=== PATIENT | male | born 1965 | race Caucasian/White ===

== ENCOUNTER 2023-12-24 11:45 | Emergency (ER) | payer OTHER ==
[2023-12-24] MEDS ORDERED: Sodium Chloride 0.9% 10 ML Syringe FLUSH PRN (12:05)
[2023-12-24 12:17] LABS: BASOPHILS ABSOLUTE AUTO 0.06 K/uL (0.02-0.10); BASOPHILS PERCENT AUTO 0.7 % (0.0-0.5); EOSINOPHILS ABSOLUTE AUTO 0.19 K/uL (0.04-0.40); EOSINOPHILS PERCENT AUTO 2.3 % (1.0-5.0); HEMATOCRIT 45.9 % (40.0-54.0); HEMOGLOBIN 15.6 g/dL (13.0-18.0); LYMPHOCYTES ABSOLUTE AUTO 1.26 K/uL (1.50-4.00); LYMPHOCYTES PERCENT AUTO 15.5 % (20.0-40.0); MEAN CORPUSCULAR VOLUME 97 fL (76-96); MONOCYTES ABSOLUTE AUTO 0.77 K/uL (0.20-0.80); MONOCYTES PERCENT AUTO 9.5 % (3.0-10.0); NEUTROPHILS ABSOLUTE AUTO 5.85 K/uL (2.00-7.50); PLATELET COUNT,PLT 256 K/uL (150-400); RED BLOOD CELL COUNT 4.73 M/uL (4.50-6.50); RED CELL DISTRIBUTION WIDTH 12.7 % (11.0-16.0); WHITE BLOOD CELL COUNT,WBC 8.1 K/uL (4.0-11.0)
[2023-12-24] MEDS: Lactated Ringers 1,000 ML IV ONE (12:22)
[2023-12-24 12:45] LABS: CARBON DIOXIDE,CO2 22.4 mmol/L (21.0-32.0); CHLORIDE,CL 98 mmol/L (98-107); ESTIMATED GFR 111 mL/min (>60); POTASSIUM,K 4.4 mmol/L (3.5-5.1); SODIUM,NA 133 mmol/L (136-145)
[2023-12-24 12:46] LABS: BLOOD UREA NITROGEN,BUN 6 mg/dL (8-26); GLUCOSE RANDOM 123 mg/dL (74-100)
[2023-12-24 12:57] LABS: APPEARANCE,URINE CLEAR (CLEAR); BILIRUBIN,URINE NEGATIVE (NEGATIVE); COLOR,URINE YELLOW; GLUCOSE,URINE NEGATIVE (NEGATIVE); KETONES,URINE NEGATIVE (NEGATIVE); LEUKOCYTE ESTERASE,URINE NEGATIVE (NEGATIVE); NITRITE,URINE NEGATIVE (NEGATIVE); OCCULT BLOOD,URINE TRACE-LYSED (NEGATIVE); PROTEIN,URINE NEGATIVE (NEGATIVE)
[2023-12-24 13:00] LABS: RBC,URINE 0-5 /HPF; WBC,URINE 0-5 /HPF
[2023-12-24] MEDS: Ketorolac 30 MG/ML SDV IVPUSH ONE (13:50)
[2023-12-24] MEDS: Ketorolac 30 MG/ML SDV ONE (14:10)
[2023-12-24 17:53] LABS: A/G RATIO 0.8 (0.8-2.0); ALANINE AMINOTRANSFERASE,ALT 62 U/L (12-78); ALBUMIN 3.7 g/dL (3.4-5.0); ALKALINE PHOSPHATASE 85 U/L (46-116); ASPARTATE AMNIOTRANSFERASE,AST 40 U/L (15-37); BILIRUBIN TOTAL 0.8 mg/dL (0.0-1.0); PHOSPHORUS 3.7 mg/dL (2.5-4.9); PROTEIN TOTAL,TP 8.2 g/dL (6.4-8.2)
== END 2023-12-24 13:55 | disposition home or self-care (01) ==
LOC: LB.ED 11:45
DX: J01.90 Acute sinusitis, unspecified (principal); T38.3X5A Adverse effect of insulin and oral hypoglycemic [antidiabetic] drugs, initial encounter; I10 Essential (primary) hypertension; E11.9 Type 2 diabetes mellitus without complications; E66.9 Obesity, unspecified; Z87.891 Personal history of nicotine dependence; Z79.84 Long term (current) use of oral hypoglycemic drugs; Z88.8 Allergy status to other drugs, medicaments and biological substances; Z68.41 Body mass index [BMI] 40.0-44.9, adult
CPT/HCPCS: 36415; 80053; 81001; 83735; 84100; 85025; 96361; 96374; 99284; J1885; J7120; 99283

== ENCOUNTER 2023-12-27 09:55 | Observation (INO) | payer OTHER ==
[2023-12-27 11:02] LABS: BASOPHILS ABSOLUTE AUTO 0.05 K/uL (0.02-0.10); BASOPHILS PERCENT AUTO 0.5 % (0.0-0.5); EOSINOPHILS ABSOLUTE AUTO 0.15 K/uL (0.04-0.40); EOSINOPHILS PERCENT AUTO 1.6 % (1.0-5.0); HEMATOCRIT 45.1 % (40.0-54.0); HEMOGLOBIN 15.6 g/dL (13.0-18.0); LYMPHOCYTES ABSOLUTE AUTO 1.34 K/uL (1.50-4.00); LYMPHOCYTES PERCENT AUTO 14.4 % (20.0-40.0); MEAN CORPUSCULAR HEMOGLOBIN 32.8 pg (27.0-32.0); MEAN CORPUSCULAR HGB CONC 34.6 g/dL (31.0-35.0); MEAN CORPUSCULAR VOLUME 95 fL (76-96); MEAN PLATELET VOLUME 9.2 fL (6.0-10.0); MONOCYTES ABSOLUTE AUTO 0.89 K/uL (0.20-0.80); MONOCYTES PERCENT AUTO 9.5 % (3.0-10.0); PLATELET COUNT,PLT 244 K/uL (150-400); RED BLOOD CELL COUNT 4.75 M/uL (4.50-6.50); RED CELL DISTRIBUTION WIDTH 12.6 % (11.0-16.0); WHITE BLOOD CELL COUNT,WBC 9.3 K/uL (4.0-11.0)
[2023-12-27 11:09] LABS: APPEARANCE,URINE CLEAR (CLEAR); BILIRUBIN,URINE SMALL (NEGATIVE); COLOR,URINE YELLOW; GLUCOSE,URINE NEGATIVE (NEGATIVE); KETONES,URINE NEGATIVE (NEGATIVE); LEUKOCYTE ESTERASE,URINE NEGATIVE (NEGATIVE); NITRITE,URINE NEGATIVE (NEGATIVE); OCCULT BLOOD,URINE MODERATE (NEGATIVE); PH,URINE 5.5 (5.0-8.0); PROTEIN,URINE NEGATIVE (NEGATIVE); UROBILINOGEN,URINE 0.2 E.U./dL (0.2-1.0)
[2023-12-27 11:13] LABS: HEMOGLOBIN A1C 5.8 % (< 5.7)
[2023-12-27 11:13] LABS: AMORPHOUS SEDIMENT,URINE FEW /HPF; MUCUS,URINE MODERATE /HPF; RBC,URINE 0-5 /HPF; SQUAMOUS EPITHELIAL CELLS,UR OCCASIONAL /HPF; WBC,URINE 0-5 /HPF
[2023-12-27 11:27] LABS: A/G RATIO 0.9 (0.8-2.0); ALBUMIN 3.8 g/dL (3.4-5.0); ANION GAP 17.2 mmol/L (5.0-15.0); BILIRUBIN TOTAL 0.6 mg/dL (0.0-1.0); BUN/CREATININE RATIO 9.6 (6-25); CARBON DIOXIDE,CO2 22.7 mmol/L (21.0-32.0); CREATININE 0.83 mg/dL (0.70-1.30); EST CRCL DRUG DOSING (CG) 92.71 mL/min; POTASSIUM,K 3.9 mmol/L (3.5-5.1)
[2023-12-27] MEDS: methylPREDNISolone Sodium Succinate 125 MG/2 ML SDV IM ONE (12:03)
[2023-12-27] MEDS ORDERED: Nystatin Topical Powder 15 GM Bottle TOP PRN (13:19)
[2023-12-27] MEDS ORDERED: MULTIVITAMIN PO SCH (14:00)
[2023-12-27] MEDS: Nystatin Topical Powder 15 GM Bottle ONE (14:37)
[2023-12-27] MEDS: Lactobacillus Acidophilus/Lactobacillus Sporogenes (Probiotic) Tab PO SCH (14:53)
[2023-12-27] MEDS: Losartan 50 MG Tab PO ONE (17:36)
[2023-12-27] MEDS: Acetaminophen 325 MG Tab PO PRN (21:05)
[2023-12-28] MEDS: Losartan 50 MG Tab PO SCH (09:55)
[2023-12-28] MEDS: Multivitamin Tab PO SCH (09:55)
[2023-12-28] MEDS: buPROPion 300 MG Tab.ER PO SCH (09:55)
[2023-12-28] MEDS: Sertraline 100 MG Tab PO SCH (09:56)
[2023-12-28] MEDS: Enoxaparin 40 MG/0.4 ML Syringe SUBCUT SCH (09:56)
[2023-12-28] MEDS: Diazepam 5 MG Tab PO ONE (17:02)
[2023-12-28] MEDS: Cyclobenzaprine 10 MG Tab PO ONE (17:07)
[2023-12-28] MEDS: Cyclobenzaprine 10 MG Tab ONE (17:58)
[2023-12-28] MEDS: Diazepam 5 MG Tab ONE (18:15)
[2023-12-28] MEDS: Morphine 4 MG/ML VIAL IVPUSH PRN (19:45)
[2023-12-28] MEDS: Bisacodyl 5 MG Tab PO SCH (19:45)
[2023-12-28] MEDS: Acetaminophen/HYDROcodone 325-5 MG Tab PO PRN (21:38)
[2023-12-29 08:07] LABS: HEMATOCRIT 46.2 % (40.0-54.0); HEMOGLOBIN 15.8 g/dL (13.0-18.0); MEAN CORPUSCULAR HEMOGLOBIN 33.3 pg (27.0-32.0); MEAN CORPUSCULAR HGB CONC 34.2 g/dL (31.0-35.0); MEAN PLATELET VOLUME 9.2 fL (6.0-10.0); RED BLOOD CELL COUNT 4.74 M/uL (4.50-6.50); RED CELL DISTRIBUTION WIDTH 12.8 % (11.0-16.0); WHITE BLOOD CELL COUNT,WBC 8.6 K/uL (4.0-11.0)
[2023-12-29 08:27] LABS: A/G RATIO 0.8 (0.8-2.0); ALBUMIN 3.5 g/dL (3.4-5.0); ANION GAP 15.4 mmol/L (5.0-15.0); BILIRUBIN TOTAL 0.4 mg/dL (0.0-1.0); BUN/CREATININE RATIO 16.9 (6-25); C-REACTIVE PROTEIN 17.5 mg/L (<5.0); CALCIUM 8.7 mg/dL (8.5-10.1); CARBON DIOXIDE,CO2 23.5 mmol/L (21.0-32.0); CREATININE 0.71 mg/dL (0.70-1.30); EST CRCL DRUG DOSING (CG) 122.96 mL/min; MAGNESIUM 2.1 mg/dL (1.8-2.4); PHOSPHORUS 4.4 mg/dL (2.5-4.9); POTASSIUM,K 3.9 mmol/L (3.5-5.1); PROTEIN TOTAL,TP 7.7 g/dL (6.4-8.2)
[2023-12-29] MEDS: Cyclobenzaprine 10 MG Tab PO PRN (22:18)
[2023-12-29] MEDS: Diazepam 10 MG Tab PO PRN (22:19)
[2023-12-30 13:53] LABS: A/G RATIO 0.8 (0.8-2.0); ALBUMIN 3.3 g/dL (3.4-5.0); ANION GAP 17.7 mmol/L (5.0-15.0); BILIRUBIN TOTAL 0.4 mg/dL (0.0-1.0); BUN/CREATININE RATIO 11.5 (6-25); C-REACTIVE PROTEIN 18.9 mg/L (<5.0); CALCIUM 9.1 mg/dL (8.5-10.1); CARBON DIOXIDE,CO2 23.3 mmol/L (21.0-32.0); CREATININE 0.87 mg/dL (0.70-1.30); EST CRCL DRUG DOSING (CG) 100.34 mL/min; MAGNESIUM 1.7 mg/dL (1.8-2.4); PHOSPHORUS 4.6 mg/dL (2.5-4.9); PROTEIN TOTAL,TP 7.4 g/dL (6.4-8.2)
[2023-12-30 13:55] LABS: HEMOGLOBIN A1C 5.5 % (< 5.7)
[2023-12-30] MEDS: Levothyroxine 25 MCG Tab PO ONE (14:25)
[2023-12-30] MEDS ORDERED: methylPREDNISolone Sodium Succinate 40 MG/1 ML SDV IVPUSH SCH (15:30)
[2023-12-30] MEDS: methylPREDNISolone Sodium Succinate 40 MG/1 ML SDV IVPUSH SCH (20:46)
[2023-12-30] MEDS: methylPREDNISolone Sodium Succinate 40 MG/1 ML SDV ONE (21:28)
[2023-12-31] MEDS: Levothyroxine 50 MCG Tab PO SCH (07:19)
[2023-12-31] MEDS: Lisinopril 5 MG Tab PO SCH (11:03)
[2024-01-02 16:49] LABS: B. BURGDORFERI IGG IMMUNOBLOT Negative (Negative); B. BURGDORFERI IGM IMMUNOBLOT Negative (Negative)
== END 2023-12-31 12:40 ==
LOC: LB.ED 09:55 → LB.MS 12:04
PROVIDERS: ADMIT Physician Assistant; ATTEND Physician Assistant
DX: M54.50 Low back pain, unspecified (principal); R29.898 Other symptoms and signs involving the musculoskeletal system; G72.9 Myopathy, unspecified; E11.40 Type 2 diabetes mellitus with diabetic neuropathy, unspecified; I10 Essential (primary) hypertension; E78.00 Pure hypercholesterolemia, unspecified; F32.A Depression, unspecified; E03.9 Hypothyroidism, unspecified; K21.9 Gastro-esophageal reflux disease without esophagitis; Z87.891 Personal history of nicotine dependence; Z79.890 Hormone replacement therapy; Z79.899 Other long term (current) drug therapy
CPT/HCPCS: 36415; 70450; 72100; 72148; 80053; 81001; 82550; 82947; 83036; 83735; 84100; 84443; 85025; 85027; 85651; 86140; 86617; 96372; 96374; 96375; 96376; 97162; 97530; 99285; A9270; G0378; J1650; J2270; J2919; 99222; 99232; 99239; A0425; A0429